=== PATIENT | female | born 1990 | race Caucasian/White ===

== ENCOUNTER 2017-09-09 12:50 | Day surgery (SDC) | payer BC ==
[~2017-09-09] VITALS: Ht 170.2 cm; Wt 56.7 kg
[2017-09-09 13:31] VITALS: BP 107/75
[2017-09-09] MEDS ORDERED: MOTRIN800 MG PO (14:35)
[2017-09-09] MEDS ORDERED: VICODIN 5-3001 EACH PO (14:35)
[2017-09-09 16:59] VITALS: BP 101/60
[2017-09-09 17:23] LABS: EOSINOPHIL (%) 0.1 % (0-5); HEMATOCRIT 33.7 % (36.0-46.0); IMMATURE GRANULOCYTE (%) 0.4 % (0.0-0.7); IMMATURE GRANULOCYTE COUNT 0.1 K/uL; INSTRUMENT ABS NEUTROPHIL CT 14.1 K/uL; LYMPHOCYTE COUNT 0.9 K/uL (1.0-2.8); MCH 31.4 PG (29.0-34.0); MCHC 34.7 G/DL (30.0-36.0); MCV 90.3 FL (83-99); MEAN PLAT.VOLUME 10.7 uM^3 (9.5-12.4); MONOCYTE (%) 0.6 % (3-12); MONOCYTE COUNT 0.1 K/uL (0-0.8); NEUTROPHIL (%) 93.1 % (45-76); NEUTROPHIL COUNT 14.1 K/uL (1.8-6.4); PLATELET COUNT 144 K/uL (156-360); RBC DIS.WIDTH-CV 11.8 % (11.8-14.6); RBC DIS.WIDTH-SD 38.4 % (39-53); RED BLOOD COUNT 3.73 M/uL (3.80-5.20); WHITE BLOOD COUNT 15.2 K/uL (4.1-10.2)
[2017-09-09 17:45] VITALS: BP 101/69
== END 2017-09-09 17:55 | disposition home or self-care (01) ==
LOC: SDC 12:50
PROVIDERS: Obstetrics & Gynecology
PROC: 10D17ZZ Extraction of Products of Conception, Retained, Via Natural or Artificial Opening (ICD-10-PCS; principal; 2017-09-09)
DX: O02.1 Missed abortion (principal); Z3A.01 Less than 8 weeks gestation of pregnancy; F41.9 Anxiety disorder, unspecified
CPT/HCPCS: 85025; 86850; 86900; 86901; 88305; J1100; J1885; J2210; J2250; J2405; J3010